=== PATIENT | male | born 1970 | race Caucasian/White ===

== ENCOUNTER 2017-03-10 10:47 | Emergency (ER) | payer MEDICAID ==
[~2017-03-10] VITALS: Ht 190.5 cm; Wt 151.0 kg
[2017-03-10 12:20] VITALS: BP 138/71
== END 2017-03-10 12:20 | disposition home or self-care (01) ==
LOC: ED 10:47
DX: J06.9 Acute upper respiratory infection, unspecified (principal)

== ENCOUNTER 2017-03-25 00:15 | Emergency (ER) | payer MEDICAID ==
[2017-03-25 02:05] VITALS: BP 137/83
== END 2017-03-25 02:05 | disposition home or self-care (01) ==
LOC: ED 00:15
DX: M51.36 Other intervertebral disc degeneration, lumbar region (principal)
CPT/HCPCS: J1885

== ENCOUNTER 2017-03-30 15:57 | Emergency (ER) | payer MEDICAID ==
[~2017-03-30] VITALS: Ht 190.5 cm; Wt 156.9 kg
[2017-03-30 17:03] VITALS: BP 147/98
== END 2017-03-30 17:03 | disposition home or self-care (01) ==
LOC: ED 15:57
DX: M25.561 Pain in right knee (principal); M17.9 Osteoarthritis of knee, unspecified; F43.10 Post-traumatic stress disorder, unspecified
CPT/HCPCS: J1885

== ENCOUNTER 2017-08-16 22:52 | Emergency (ER) | payer MEDICAID ==
[~2017-08-16] VITALS: Ht 190.5 cm; Wt 156.5 kg
[2017-08-17] VITALS: BP 127/92
== END 2017-08-17 | disposition home or self-care (01) ==
LOC: ED 22:52
DX: L02.216 Cutaneous abscess of umbilicus (principal); I10 Essential (primary) hypertension; E78.00 Pure hypercholesterolemia, unspecified; M17.9 Osteoarthritis of knee, unspecified

== ENCOUNTER 2019-01-19 11:19 | Emergency (ER) | payer BC ==
[~2019-01-19] VITALS: Ht 190.5 cm; Wt 145.1 kg
[2019-01-19 11:29] VITALS: BP 147/96; Ht 190.5 cm; Wt 145.1 kg
== END 2019-01-19 12:00 | disposition home or self-care (01) ==
LOC: ED 11:19
DX: S71.112D Laceration without foreign body, left thigh, subsequent encounter (principal); S11.91XD Laceration without foreign body of unspecified part of neck, subsequent encounter; S01.511D Laceration without foreign body of lip, subsequent encounter; S01.01XD Laceration without foreign body of scalp, subsequent encounter; I10 Essential (primary) hypertension; M19.90 Unspecified osteoarthritis, unspecified site; E78.00 Pure hypercholesterolemia, unspecified; W45.8XXD Other foreign body or object entering through skin, subsequent encounter

== ENCOUNTER 2019-01-22 12:53 | Emergency (ER) | payer BC ==
[~2019-01-22] VITALS: Ht 190.5 cm; Wt 154.2 kg
[2019-01-22 13:16] VITALS: BP 132/74
== END 2019-01-22 16:06 | disposition home or self-care (01) ==
LOC: ED 12:53
DX: Z48.02 Encounter for removal of sutures (principal)

== ENCOUNTER 2019-09-11 11:07 | Emergency (ER) | payer BC ==
[~2019-09-11] VITALS: Ht 190.5 cm; Wt 144.7 kg
[2019-09-11 11:17] VITALS: Ht 190.5 cm; Wt 144.7 kg
[2019-09-11 11:46] VITALS: BP 142/82
== END 2019-09-11 11:46 | disposition home or self-care (01) ==
LOC: ED 11:07
DX: J01.90 Acute sinusitis, unspecified (principal); K59.00 Constipation, unspecified; F17.210 Nicotine dependence, cigarettes, uncomplicated; I10 Essential (primary) hypertension; E78.00 Pure hypercholesterolemia, unspecified; Z98.890 Other specified postprocedural states
CPT/HCPCS: 99406

== ENCOUNTER 2020-09-10 10:13 | Emergency (ER) | payer BC ==
[~2020-09-10] VITALS: Ht 190.5 cm; Wt 135.2 kg
[2020-09-10 10:28] VITALS: Ht 190.5 cm; Wt 135.2 kg
[2020-09-10 12:25] VITALS: BP 155/76
== END 2020-09-10 12:25 | disposition home or self-care (01) ==
LOC: ED 10:13
DX: M25.511 Pain in right shoulder (principal); I10 Essential (primary) hypertension; E78.00 Pure hypercholesterolemia, unspecified